=== PATIENT | male | born 1965 | race Caucasian/White ===

== ENCOUNTER → 2021-05-25 | Outpatient (CLI) | payer OTHER ==
--- NOTE | 2021-05-25 17:59 | KCIC ---
EXAM: XR SHOULDER_RIGHT 2+ VIEWS 05/25/2021 10:00 AM CLINICAL INDICATION: Acute right shoulder pain COMPARISON: None TECHNIQUE: 3 views of the right shoulder FINDINGS: No acute fracture. Alignment is normal. The glenohumeral joint is maintained. 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 Subacromial space is preserved. There i s a 5 mm nodule seen in the right upper lobe. Recommend dedicated chest radiograph. IMPRESSION: 1. No acute osseous abnormality of the right shoulder 2. 5 mm nodule seen in the partially visualized right upper lobe. Recommend dedicated chest radiograp h. Electronically signed by: Yamilex Ewing MD (05/25/2021 5:57 PM) [id number]
== END ==
LOC: KCIC 09:58
PROVIDERS: ATTEND Family Medicine
DX: R91.1 Solitary pulmonary nodule (principal); M19.011 Primary osteoarthritis, right shoulder; M25.711 Osteophyte, right shoulder
CPT/HCPCS: 73030